=== PATIENT | male | born 1985 | race Two or more races ===

== ENCOUNTER 2017-12-11 15:39 | Emergency (ER) | payer MEDICAID ==
[~2017-12-11] VITALS: Ht 170.2 cm; Wt 81.6 kg
[2017-12-11 17:14] LABS: Urine WBC None Seen /hpf (0 - 3)
[2017-12-11 17:20] LABS: Urine Bacteria NONE SEEN /hpf (None Seen); Urine Blood Negative /uL (Negative); Urine Specific Gravity 1.025 (1.001-1.035)
[2017-12-11 17:43] LABS: Alkaline Phosphatase 161 U/L (45-117); Amylase 22 U/L (25-115); Anion Gap 10 (5-15); Bilirubin, Total 0.7 mg/dL (0.2-1.0); Carbon Dioxide 24 mmol/L (21-32); Chloride 93 mmol/L (98-107); GFR African American 118 mL/min; GFR Non-African American 98 mL/min; Glucose 357 mg/dL (74-106); Lipase 142 U/L (73-393); Magnesium 2.3 mg/dL (1.6-2.6); Potassium 4.7 mmol/L (3.5-5.1); Sodium 127 mmol/L (136-145)
[2017-12-11 17:53] LABS: Albumin 3.4 g/dL (3.4-5.0); BUN/Creatinine Ratio 17.7; Blood Urea Nitrogen 17 mg/dL (7-18); Calcium 7.7 mg/dL (8.5-10.1)
[2017-12-11 18:04] LABS: Basophils # (auto) 0.1 uL; Basophils % (auto) 0.5 % (0.0-2.0); Eosinophils # (auto) 0.1 uL; Eosinophils % (auto) 0.6 % (0.0-7.0); Hematocrit 44.8 % (41.0-53.0); Hemoglobin 15.9 g/dL (13.5-17.5); Lymphocytes # (auto) 3.7 uL; Lymphocytes % (auto) 27.3 % (10.0-50.0); Mean Corpuscular Hemoglobin 31.3 pg (28.0-32.0); Mean Corpuscular Hgb Conc. 35.4 g/dL (32.0-36.0); Mean Corpuscular Volume 88.3 fL (80.0-100.0); Monocytes # (auto) 0.6 uL; Monocytes % (auto) 4.4 % (0.0-12.0); Neutrophils # (auto) 9.2 uL; Neutrophils % (auto) 67.2 % (37.0-80.0); Nucleated Red Blood Cells % 1.4 %; Platelet Count (auto) 383 10^3/uL (140-450); Red Blood Cells 5.07 10^6/uL (4.5-5.90); Red Cell Distribution Width 13.3 % (11.8-14.3); White Blood Cell 13.7 10^3/uL (4.4-10.8)
[2017-12-11 18:13] LABS: Alanine Aminotransferase 33.6 U/L (16-61)
[2017-12-12 04:10] VITALS: BP 132/96
== END 2017-12-12 04:08 | disposition home or self-care (01) ==
LOC: ER 15:43
DX: J86.9 Pyothorax without fistula (principal); J06.9 Acute upper respiratory infection, unspecified; D72.829 Elevated white blood cell count, unspecified; E11.9 Type 2 diabetes mellitus without complications; F17.210 Nicotine dependence, cigarettes, uncomplicated; I10 Essential (primary) hypertension
CPT/HCPCS: 36415; 80053; 81001; 82150; 82962; 83690; 83735; 84484; 85025